=== PATIENT | female | born 1980 | race American Indian/Alaskan Native ===

== ENCOUNTER 2020-08-05 14:25 | Emergency (ER) | payer OTHER ==
[2020-08-05 15:15] VITALS: BP 168/90
--- NOTE | 2020-08-05 17:12 | Emergency Department Report ---
Chief Complaint: Back Pain/Injury Stated Complaint: BACK PAINS - HPI History of Present Illness: 39-year-old -[place] female presents to the emergency room for chronic back pain. Patient states that back is worse when she stands up or lies on her back. Patient feels it is because her breasts are so heavy now. Patient admits that she has gained weight from dealing with Covid isolation. - Exam Vital Signs: Vital Signs 08/05/20 15:13 Temperature 98.2 F Pulse Rate 58 L Respiratory 18 Rate Blood Pressure 168/90 O2 Sat by Pulse 100 Oximetry Physical Exam: Alert and oriented x3 no acute distress Respiratory even nonlabored no accessory muscles used Breasts are very heavy and large. Amatory without difficulties MSE screening note: Focused history and physical exam performed. Due to findings the following was ordered: 39-year-old -[place] female presents to the emergency room for chronic back pain. Patient states that back is worse when she stands up or lies on her back. Patient feels it is because her breasts are so heavy now. Patient admits that she has gained weight from dealing with Covid isolation. Recommend to follow-up with Dr. Hamilton breast surgeon. Suggest naproxen 2 tablets [id number] every 12 hours. As needed for pain ED Disposition for MSE Clinical Impression: Chronic back pain greater than 3 months duration, Large breasts, Weight gain Disposition: [id number] TO HOME OR SELFCARE Is pt being admited?: No Does the pt Need Aspirin: No Condition: Stable Instructions: Chronic Pain, Adult Additional Instructions: Recommend to follow-up with the breast specialist. You can also try naproxen [id number]. You can take 2 tablets every 12 hours as needed. Please increase your water intake and take with food. Referrals: PRIMARY CARE, [Primary Care Provider] - 3-5 Days LILLY HAMILTON MD [Staff Physician] - 3-5 Days Forms: Work/School Release Form(ED)
== END 2020-08-05 17:30 | disposition home or self-care (01) ==
LOC: ED 14:25
DX: M54.9 Dorsalgia, unspecified (principal); G89.29 Other chronic pain; R63.5 Abnormal weight gain
CPT/HCPCS: 99282